=== PATIENT | female | born 1995 | race Caucasian/White ===

== ENCOUNTER → 2025-01-30 | Outpatient (CLI) | payer BC ==
--- NOTE | 2025-01-30 13:26 | US ---
EXAMINATION TYPE: US venous doppler duplex LE BI DATE OF EXAM: 01/30/2025 12:54 PM COMPARISON: NONE CLINICAL INDICATION: Female, 29 years old with history of R22.43 SWELLING, MASS AND LUMP, LOWER LIMB, BILATE; No hx of DVT. Patient is not taking blood thinners. Patient is 14 weeks . TECHNIQUE: The lower extremity deep venous system is examined utilizing real time linear array sonog lucia with graded compression, color doppler sonography, and spectral doppler. SIDE PERFORMED: Bilateral FINDINGS: VESSELS IMAGED: Common Femoral Vein Deep Femoral Vein Greater Saphenous Vein * Femoral Vein Popliteal Vein Small Saphenous Vein * Proximal Calf Veins (* superficial vessels) Right Leg: No evidence of DVT. Left Leg: No evidence of DVT. IMPRESSION: No evidence for deep vein thrombosis. [facility], , 01/30/2025 1:24 PM
--- NOTE | 2025-01-30 13:28 | US ---
EXAMINATION TYPE: US extremity nonvasc mass SANG DATE OF EXAM: 01/30/2025 COMPARISON: NONE CLINICAL INDICATION: Female, 29 years old with history of R22.43 Localized swelling, mass and lump, l ower limb, bilate; Painful bilateral dinh, palpable bilateral ankle/foot. Pt states the left side is more painful. Patient is TECHNIQUE: Grayscale imaging of the bilateral lower chimney is an area of palpable abnormality. FINDINGS: No abnormalities seen by ultrasound in areas of concern. Scanned bilateral dinh, ankle, and foot at areas of concern. IMPRESSION: No organizing fluid collection or mass. [facility], , 01/30/2025 1:26 PM
== END | disposition home or self-care (01) ==
LOC: RADUSWWP 12:30
PROVIDERS: ATTEND Family Medicine
DX: R22.43 Localized swelling, mass and lump, lower limb, bilateral (principal)
CPT/HCPCS: 76882; 93970